=== PATIENT | male | born 1960 | race Caucasian/White ===

== ENCOUNTER 2016-09-01 07:35 | Observation (INO) | payer BC ==
--- NOTE | ~2016-09-01 | HP ---
History And Physical [place] [id number] [place]. [address] NAME: KIERRA MENDOZA : 62 STATUS : ADM Sheryl PAT#: [id number] AGE: 56 ADM/REG DATE : 09/01/16 MR#: [id number] REPORT SERV DATE: 09/01/16 DICTATED BY: ROSAURA CRAWFORD DATE: 09/01/16 REPORT STATUS : Draft TRANSCRIBED BY: MODL DATE: 09/01/16 DATE OF ADMISSION: 09/01/2016 CHIEF COMPLAINT: Left and right side pain, ongoing over one day. HISTORY OF PRESENT ILLNESS: This is a pleasant 56-year-old white male with a history of severe GERD, remote ulcer, and longstanding atypical pain on his left and right sides. He reports that they are tender to touch and most recently is tender to touch in the left ribs. He underwent a cardiac evaluation for this pain over 1 year ago in 07/05/2015. Nuclear stress test then revealed no ischemia on imaging or EKG. It was considered to be an overall low risk stress test with an ejection fraction of 52%. He reports that he continues to have these atypical pains and his PCP had told him if his pain was severe and recurrent that he should go to the emergency department. He reports the pain is worse with sitting on the couch and watching TV and involves spasms and cramping on his sides. He reports he feels better if he moves around, stands up, and walks. There was no exertional component. There is no associated symptoms including no dyspnea, no syncope, presyncope, diaphoresis or burning in the chest. He reports no recent precordial chest pain. He does often get reflux symptoms but reports that has been quiet of late while he is taking omeprazole. Specifically, no chest pain for several days. Again, left and right-sided pains while sitting. At this present time, he continues to have tenderness to palpation over the left side of his ribs under the axilla. He has no other complaints at this time. He did have breakfast at approximately 0415 hours this morning including 2 cups of black coffee. He reports he does also have back issues. He denies any recent illness except for some sinus postnasal drip. PAST MEDICAL HISTORY: 1. Hypertension. 2. Hyperlipidemia. 3. Snoring/question undiagnosed sleep apnea. 4. GERD. 5. Irritable bowel syndrome. 6. History of remote ulcer noted on sigmoidoscopy. 7. Chronic sinus issues with chronic maxillary sinusitis, left anterior ethmoiditis, left nasal septal deviation, status post nasal septoplasty, left total ethmoidectomy, left maxillary sinusectomy with tissue removal on 07/22/2013. 8. History of chest pain, status post low-risk nuclear stress test on 07/05/2015 with Ricardo stage 4 achieved. 9. Back pain. PAST SURGICAL HISTORY: 1. Tonsillectomy and adenoidectomy, age 13. 2. Epididymectomy. 3. Appendectomy, age 2. 4. Lumbar fusion in 2007. 5. Knee arthroscopy. 6. CTR, right hand. History And Physical [address] [address] NAME: KIERRA MENDOZA : 62 STATUS : ADM Sheryl PAT#: [id number] AGE: 56 ADM/REG DATE : 09/01/16 MR#: [id number] REPORT SERV DATE: 09/01/16 DICTATED BY: ROSAURA CRAWFORD DATE: 09/01/16 REPORT STATUS : Draft TRANSCRIBED BY: EARLENE DATE: 09/01/16 SOCIAL HISTORY: . 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 He reports he is sedentary. He quit smoking approximately one year ago but continues to dip and has dipped 1 can every 2-1/2 days x37 years. He does consume alcohol daily approximately one drink per day. No symptoms of chest pain or side pain with walking at his job. FAMILY HISTORY: Grandfather with myocardial infarction age 55; father of congestive heart failure and had myocardial infarction at the age of 55. REVIEW OF SYSTEMS: As above per HPI, all other systems reviewed and negative. ALLERGIES: NO KNOWN ALLERGIES. HOME MEDICATIONS: List reviewed and is as follows: Benicar 20 mg p.o. daily, Prilosec 40 mg p.o. daily, Zocor 40 mg p.o. at bedtime. PHYSICAL EXAMINATION: VITAL SIGNS: Weight is 91.34 kg, height 180.34 cm, body mass index equals 28.1, oxygen saturation 98% on room air, temperature 97.8, pulse 74, respiratory rate 16, initial blood pressure 160/108, subsequent blood pressure 140/86. GENERAL: Well developed, well nourished. In no apparent distress. HEENT: Head normocephalic. No xanthelasma. Sclera clear, anicteric. Moist mucous membranes without pallor. No lymphadenopathy. No deficits noted. NECK: Trachea midline. Supple. No thyromegaly, JVD, or bruits. RESPIRATORY: Unlabored respirations. Breath sounds clear bilaterally to posterior auscultation. No wheezes, rhonchi or crackles. CARDIOVASCULAR: Regular rate and rhythm. No murmur, rub, or gallop appreciated. Left side approximately senior care down from axilla, there is a 2 inch area that is acutely tender to palpation and that the patient describes as the pain that brought him to the emergency room. No abnormalities noted on examination. ABDOMEN: Soft, nontender, and nondistended. Active bowel sounds auscultated x4 quadrants. No organomegaly and no masses. No aortic bruit. EXTREMITIES: DP/PT and radial pulses 2+ bilaterally. No clubbing, cyanosis, or edema. SKIN: Warm, dry, intact. No rash. Normal turgor. MUSCULOSKELETAL: Moves all extremities in bed without difficulty. NEURO/PSYCH: Alert and oriented x3 with no acute distress. Affect appropriate to current situation. LABORATORY DATA: BMP: Sodium 142, potassium 3.8. Creatinine 1.02. Glucose 107, magnesium 2.1. CBC: White blood cell count 5.7, hemoglobin 14.9, hematocrit 41.2, platelets 126. Troponin less than 0.02 at 0642 hours with second troponin due at 1200 hours. STUDIES: Chest x-ray, no acute processes. EKG, personally interpreted at 0548 hours, this is of poor quality. It appears to be normal sinus rhythm with an incomplete right bundle branch block. I will repeat EKG given the poor quality. Telemetry, normal sinus rhythm, 60s. History And Physical [address] [address] NAME: KIERRA MENDOZA : 62 STATUS : ADM Sheryl PAT#: [id number] AGE: 56 ADM/REG DATE : 09/01/16 MR#: [id number] REPORT SERV DATE: 09/01/16 DICTATED BY: ROSAURA CRAWFORD DATE: 09/01/16 REPORT STATUS : Draft TRANSCRIBED BY: EARLENE DATE: 09/01/16 ASSESSMENT AND PLAN: 1. Atypical chest pain/left side pain. This is with localized tenderness to palpation of the left side of the ribs. The pain is atypical and it is better with movement and worse with sitting on the couch. He reports he does also have back issues. He did undergo a stress test on 07/05/2015. This was considered to be low risk with no ischemia and ejection fraction of 52%. He did consume two cups of black coffee and one oatmeal at 0400 hours. Given his cardiac risk factors of age 56, family history of coronary artery disease, hypertension, hyperlipidemia, and ongoing dipping and also given patient's concern for cardiac etiology for his side pain, I will plan on a treadmill only stress test today if the second troponin at noon is negative. If his stress test is low risk with no ischemia then RN is to discharge him to home for followup with PCP in one to two weeks where they can evaluate for noncardiac etiologies. My highest suspicion is for musculoskeletal etiology given spasms and tenderness to palpation in a gentleman who reports back issues, status post lumbar fusion. 2. Hypertension. Continue current home medications. He is to check his blood pressure daily, record and bring to PCP as his blood pressure was slightly abnormal in the emergency room. 3. Hyperlipidemia. Continue home medication. 4. Tobacco use in the form of dipping. I have advised total cessation for cardiovascular health. 5. Gastroesophageal reflux disease. The patient reports no symptoms today or yesterday on omeprazole. He is to continue that home medication and followup with PCP. The patient is to be seen down in the stress testing area by rounding polytechnic teacher for [employer]. MIRNA/EARLENE Rosaura Crawford NP / [id number] CC: DANGELO Rey M.D.
[2016-09-01 07:01] LABS: BASOPHILS 0.4 %; BASOPHILS ABSOLUTE 0.02 10/3/uL (0.0-0.16); EOSINOPHILS 4.4 %; EOSINOPHILS ABSOLUTE 0.25 10/3/uL (0.0-0.53); ER CBC TAT 0 Hrs 13 Mins; HEMATOCRIT 41.2 % (40.0-51.0); HEMOGLOBIN 14.9 g/dL (13.6-17.8); IMMATURE GRANULOCYTES 0.2 %; IMMATURE GRANULOCYTES ABSOLUTE 0.01 10/3/uL (0.0-0.11); LYMPHOCYTES 36.3 %; LYMPHOCYTES ABSOLUTE 2.05 10/3/uL (0.67-4.30); MANUAL DIFF NO %; MEAN CORPUS HGB CONC 36.2 g/dL (32.0-36.0); MEAN CORPUSCULAR HEMOGLOB 30.5 pg (26.0-34.0); MEAN CORPUSCULAR VOLUME 84.3 fL (80-100); MEAN PLATELET VOLUME 8.6 fL (9.2-13.0); MONOCYTES 9.2 %; MONOCYTES ABSOLUTE 0.52 10/3/uL (0.21-1.20); NEUTROPHILS 49.5 %; PLATELET COUNT 126 10/3/uL (150-400); RBC DISTRIBUTION WIDTH 12.5 % (12.0-16.0); RED CELL COUNT 4.89 10/6/uL (4.7-6.1); WHITE BLOOD CELLS 5.7 10/3/uL (4.5-10.5)
[2016-09-01 07:08] LABS: INTERNATIONAL NORMAL RATI 1.1 UNITS (-); PARTIAL THROMBO TIME 34.2 SEC (22.5-37.2)
[2016-09-01 07:10] LABS: BUN (BLOOD UREA NITROGEN) 9 MG/DL (6-23); CALCIUM, SERUM 8.7 MG/DL (8.5-10.4); CHEST PAIN PROFILE TAT 0 Hrs 22 Mins; CHLORIDE, SERUM 105 MMOL/L (96-112); CO2 (CARBON DIOXIDE) 26 MMOL/L (24-34); CREATININE 1.02 MG/DL (0.70-1.30); GFR AFRICAN AMERICAN 95 ML/MIN (>=60); GFR NON AFRICAN AMERICAN 82 ML/MIN (>=60); GLUCOSE, SERUM 107 MG/DL (60-99); POTASSIUM, SERUM 3.8 MMOL/L (3.5-5.3); SODIUM, SERUM 142 MMOL/L (135-148); TROPONIN I <0.02 NG/ML (<0.05)
[~2016-09-01 07:35] MED LIST: BENICAR20 PO; HALF81 PO; PRILOSEC40 MG PO; TRILIPIX135 MG PO; XYZAL5 MG PO; ZOCOR40 PO
== END 2016-09-01 14:43 | disposition home or self-care (01) ==
LOC: ER 07:35 → CDU1 07:58 → CDU2 08:03
PROVIDERS: Emergency Medicine
DX: R07.89 Other chest pain (principal); K21.9 Gastro-esophageal reflux disease without esophagitis; I10 Essential (primary) hypertension; E78.00 Pure hypercholesterolemia, unspecified; E78.5 Hyperlipidemia, unspecified; K58.9 Irritable bowel syndrome, unspecified; Z90.49 Acquired absence of other specified parts of digestive tract; Z98.890 Other specified postprocedural states; Z87.891 Personal history of nicotine dependence
CPT/HCPCS: 71010; 80048; 83735; 84484; 85025; 85610; 85730; 93005; 93017; 99285; A9270-GY; G0378